=== PATIENT | male | born 1980 | race Two or more races ===

== ENCOUNTER 2019-07-28 11:47 | Emergency (ER) | payer MEDICAID ==
[~2019-07-28] VITALS: Ht 175.3 cm; Wt 109.8 kg
[2019-07-28 12:10] VITALS: BP 169/92
[2019-07-28] MEDS ORDERED: FLUORESCEIN SODIUM 1MG/STRIP RIGHTEYE ONE (12:45)
[2019-07-28] MEDS ORDERED: TETRACAINE 0.5% OPHTH DROPS 4ML RIGHTEYE ONE (12:45)
== END 2019-07-28 14:28 | disposition home or self-care (01) ==
LOC: ER 11:47
DX: T15.01XA Foreign body in cornea, right eye, initial encounter (principal); X58.XXXA Exposure to other specified factors, initial encounter; Y93.9 Activity, unspecified; Y92.9 Unspecified place or not applicable
CPT/HCPCS: 99283